=== PATIENT | female | born 1965 | race Caucasian/White ===

== ENCOUNTER → 2018-11-14 11:16 | Outpatient (CLI) | payer OTHER, SELFPAY ==
--- NOTE | 2018-11-14 | DI.MRI.S_ITS ---
PROCEDURE: MR KNEE LT WO CON INDICATIONS: LEFT KNEE PAIN TECHNIQUE: Noncontrast sagittal PD fast spin echo and T2 fast spin echo with fat saturation, sagittal 3-D FLASH with fat saturation; coronal T1 spin echo and PD fast spin echo with fat saturation, and axial PD fast spin echo with fat saturation through the knee. COMPARISON: None. FINDINGS: Image quality: Excellent. Menisci: The medial and lateral menisci demonstrate normal morphology and internal signal. The meniscal root ligaments appear intact. Cruciate ligaments: The anterior and posterior cruciate ligaments appear intact. Medial structures: The medial collateral ligament appears intact. Visualized portions of the pes anserinus tendons appear normal. No abnormal bursal fluid. Lateral structures: The lateral collateral ligament, long and short heads of the biceps femoris tendon appear intact. The there is partial thickness tearing of the lateral patellofemoral ligament at the patellar insertion site. The popliteus tendon appears normal. Iliotibial band appears normal. Anterior structures: The quadriceps and patellar tendons appear intact. Patellar alignment is normal. There is moderate T2 signal elevation involving the lateral patella and adjacent soft tissues at the patellofemoral ligament insertion site. No femoral trochlear dysplasia or ventral trochlear prominence. No edema in the infrapatellar fat pad. Moderate prepatellar subcutaneous edema. Bones and cartilage: No bone marrow contusions or fractures. There is mild tricompartmental periarticular osteophyte formation. Mild diffuse articular cartilage loss overlies the weightbearing aspects of the medial femoral condyle and medial tibial plateau. Articular cartilage fibrillation overlies the patellar apex, with a superimposed full-thickness articular cartilage fissure overlying the patellar apex inferiorly. Articular cartilage fibrillation overlies the lateral patellar facet. Multiple intraosseous ganglia within the medial and lateral patellar facets are present. Joint space: There is physiologic knee joint fluid. No Mayberry's cyst. Normal appearing synovial plicae are incidentally noted. IMPRESSION: 1. No evidence of internal derangement. 2. 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 3. Partial-thickness tearing of the lateral patellofemoral ligament at the patellar insertion site, with adjacent edema/inflammation. 4. Prepatellar bursitis. Dictated by: James Tomlinson M.D. on 11/14/2018 at 13:51 Approved by: James Tomlinson M.D. on 11/14/2018 at 13:56
== END ==
PROVIDERS: PCP Family Medicine Geriatric Medicine; Visit Provider Orthopaedic Surgery
DX: M25.562 Pain in left knee (principal); M17.12 Unilateral primary osteoarthritis, left knee; S76.112A Strain of left quadriceps muscle, fascia and tendon, initial encounter; M70.42 Prepatellar bursitis, left knee
CPT/HCPCS: 73721

== ENCOUNTER 2021-09-18 05:52 | Day surgery (SDC) | payer OTHER, SELFPAY ==
[2021-09-14 12:50] VITALS: BMI 48.0
--- NOTE | 2021-09-18 | PATH_ITS ---
[facility] Accession Number: [id number] . 01 Material submitted: . PART A: lymph node - LEFT GROIN LYMPH NODE FORMALIN PART B: lymph node - LEFT GROIN LYMPH NODE-B FIX . 01 Clinical history: . LYMPHADENOPATHY . 01 Diagnosis: A, B: Left Groin Lymph Node, Excision: Benign, reactive lymph node; see microscopic description. Negative for hematolymphoid malignancy. Negative for granulomatous inflammation. Negative for carcinoma. MRV 09/21/2021 1509 Local . 01 Electronically signed: . Anthony Boyce MD, Pathologist NPI- [id number] . 01 Gross description: . A. Received in formalin and labeled with left groin lymph node is one piece of dudley soft tissue measuring 1.3 x 1.0 x 0.6 cm. The tissue is inked, serially sectioned into four slices, and entirely submitted in cassette A1. B. Received in B-Fix specimen transport container is one piece of dudley soft tissue measuring 0.5 x 0.5 x 0.3 cm. The tissue is inked, trisected and entirely submitted in cassette B1. (BJ:[id number]) /MRV 09/19/2021 1023 Local . 01 Microscopic: . A, B: Microscopic examination of the left groin lymph node reveals normal romie architecture with open sinuses and reactive follicles. There is no morphologic evidence for metastatic carcinoma. There is no evidence for granulomatous inflammation. . A panel of immunostains is performed to evaluate for hematolymphoid malignancies, with the following results: . CD3: T lymphocytes positive. CD5: T lymphocytes positive (negative for aberrant coexpression on the B lymphocytes). CD20: B lymphocytes positive. CD10 and BCL6: Follicles positive. CD21: Follicular dendritic cells positive. BCL2: T lymphocytes positive (negative on the germinal centers of the reactive follicles and negative for aberrant coexpression on the B lymphocytes). Cyclin D1: Negative for aberrant coexpression on the B lymphocytes. Proliferation marker Ki-67: Low, limited within the reactive germinal centers. [place] light chain immunostain: Subset of plasma cells positive/no restriction. Lambda light chain immunostain: Subset of plasma cells positive/no restriction. . Based on the above immunohistochemistry and morphology, this is a benign lymph node with normal architecture and normal B and T cell distribution. . There is no evidence of malignancy. . If there are radiologically suspicious lymph nodes, additional sampling may also be considered for histologic examination if clinically indicated. . Concurrent flow cytometry did not reveal atypical B cell, NK cell, or T cell populations (see complete flow cytometry report [id number] for details). . As part of ongoing quality control technician, Dr. Torrie Carrillo, hematopathologist, has reviewed the case and agrees with the interpretation. . * This test was developed and its performance characteristics determined by [facility]. It has not been cleared or approved by the U.S. Food and Drug Administration. The FDA has determined that such clearance or approval is not necessary. This test is used for clinical purposes. It should not be regarded as investigational or for research. . 01 Pathologist provided ICD-10: R59.1 . 01 CPT . 415142, 922464, E02002, S54466 Performed at: 01 [facility] [address] [place] [address], [place], [place] [id number] MD Gregory Rajput MD Phone: [phone]
[2021-09-18 06:59] LABS: COVID19 -Nasal RAPID Negative (Negative)
[2021-09-18 07:14] VITALS: BP 159/77; PULSE 61; RESP 16; TEMP 36.4; O2SAT 98; BMI 48.0
[2021-09-18] MEDS: LACTATED RINGERS 1,000 ML 42 ML IV (07:31)
--- NOTE | 2021-09-18 07:36 | PM.PREOP ---
Pre-operative Note Interval Note History & Physical reviewed/Exam performed by Physician: Yes Changes to H&P: No
[2021-09-18 07:43] VITALS: BMI 48.0
[2021-09-18] MEDS: CEFAZOLIN 1 GM VIAL 3 GM IV (07:55)
--- NOTE | 2021-09-18 08:06 | SUR.OPER ---
Supine on padded OR bed, head on pillow, arms secured on padded arm boards at <90 degrees abduction, legs uncrossed, safety belt at thigh, tape over blanket over lower legs. Gel pad under bilateral heels.
[2021-09-18] MEDS: BUPIVACAINE 0.25% (PF) VIAL 30 ML INJ (08:11)
[2021-09-18 08:38] VITALS: BP 112/63; PULSE 70; RESP 14; TEMP 36.1; O2SAT 95
[2021-09-18 08:43] VITALS: BP 118/72; PULSE 66; RESP 12; O2SAT 95
[2021-09-18 08:48] VITALS: BP 126/73; PULSE 66; RESP 12; O2SAT 94
[2021-09-18] MEDS: fentaNYL 100 MCG/2 ML INJ IV (08:48)
[2021-09-18 08:54] VITALS: BP 131/104; PULSE 62; RESP 15; TEMP 36.1; O2SAT 94
[2021-09-18 09:23] VITALS: BP 125/67; PULSE 64; RESP 12; TEMP 36.1; O2SAT 95
--- NOTE | 2021-09-22 07:08 | PM.OP.1 ---
Operative Date/Time/Diagnoses Date of procedure: 09/18/21 Time of procedure: 07:08 Pre-op diagnosis: lymphadenopathy Post-op diagnosis: same Procedure & Clinicians Procedure: excisional biopsy left groin lymph node Same procedure as scheduled: Yes Indications: lymphadenopathy of unexplained etiology Surgeon: Robert Hodge Click Yes if Unassisted: Yes Anesthesia Type: General Operative Notes Findings: mild left groin adenopathy. Specimen(s): other (left groin lymph node) Estimated Blood Loss (mL): 20 Procedure in detail: patient was brought to the operating room placed supine on the table. Anesthesia was induced she was intubated with an LMA. She received antibiotics pre skin incision. Prepped and draped sterile fashion. Time-out performed. Incision over the left groin at the point of maximal lymphadenopathy was made. Subcutaneous tissues were divided. A superficial inguinal lymph node was encountered. Lymph node was dissected out circumferentially. Lymph node was ligated at its base with silk suture and then sharply excised. Specimen was passed off the field. The wound was checked for hemostasis and then closed in layers. Skin was closed with Monocryl followed by Dermabond application of Steri-Strips. Extubated transferred to recovery room stable condition Complications: none Post-operative Condition: stable Disposition: same day surgery
== END 2021-09-18 09:24 | disposition home or self-care (01) ==
PROVIDERS: PCP Physician Assistant Medical; Referring Provider Surgery; Visit Provider Surgery
PROC: (CPT 38531; principal; 2021-09-18 07:45)
DX: R59.0 Localized enlarged lymph nodes (principal); Z20.822 Contact with and (suspected) exposure to COVID-19; I10 Essential (primary) hypertension; E66.01 Morbid (severe) obesity due to excess calories; G47.33 Obstructive sleep apnea (adult) (pediatric); Z68.42 Body mass index [BMI] 45.0-49.9, adult
CPT/HCPCS: 38531; 87635; J0690; J3010

== ENCOUNTER → 2023-01-04 10:31 | Outpatient (CLI) | payer OTHER, SELFPAY ==
--- NOTE | 2023-01-04 | DI.MRI.S_ITS ---
PROCEDURE: MR LUMBAR SPINE WO CON INDICATIONS: Strain of muscle, fascia and tendon of lower back, subsequen TECHNIQUE: Noncontrast sagittal T1 spin echo and T2 fast echo, sagittal STIR, and T2 fast spin echo through the lumbar spine. In cases with scoliosis, additional coronal T2 fast spin echo may be performed. COMPARISON: None. FINDINGS: Image quality: Excellent. Alignment and Curvature: There is normal bony alignment. Bone Marrow: Marrow is of normal overall signal. No acute vertebral body compression fractures. Spinal Cord: Conus medullaris terminates at the L1 level. Visualized cord demonstrates normal signal and size. Paraspinous Soft Tissues: No paravertebral masses. Paraspinal muscles demonstrate fatty atrophy. T12-L1: No significant disc bulge. The foramina and central canal are patent. L1-L2: No significant disc bulge. The foramina and central canal are patent. L2-L3: Disc space narrowing with desiccation and diffuse bulge of the disc. There is mild bilateral foraminal stenosis. L3-L4: Disc space narrowing with desiccation and diffuse bulge of the disc. Facet hypertrophy bilaterally. Mild bilateral foraminal stenosis and moderate central canal stenosis. L4-L5: Diffuse disc bulge and facet hypertrophy. No significant foraminal stenosis. Disc bulge and ligamentum flavum hypertrophy cause mild central canal stenosis. L5-S1: Diffuse disc bulge with a central annular tear. Left foraminal protrusion. Mild right and moderate left foraminal stenosis. The central canal is patent. IMPRESSION: 1. Multilevel lumbar spondylosis causing foraminal and central canal stenosis as detailed above. 2. No acute abnormality. 3. The visualized cord has a normal signal and appearance. Dictated by: Jean Paul Vasquez M.D. on 01/04/2023 at 11:01 Approved by: Jean Paul Vasquez M.D. on 01/04/2023 at 11:05
== END ==
PROVIDERS: PCP Physician Assistant Medical; Referring Provider Physical Medicine & Rehabilitation Pain Medicine; Visit Provider Physical Medicine & Rehabilitation Pain Medicine
DX: M47.816 Spondylosis without myelopathy or radiculopathy, lumbar region (principal); M48.061 Spinal stenosis, lumbar region without neurogenic claudication; S39.012D Strain of muscle, fascia and tendon of lower back, subsequent encounter
CPT/HCPCS: 72148

== ENCOUNTER 2024-01-28 17:49 | Emergency (ER) | payer OTHER, SELFPAY ==
[2024-01-28 17:59] VITALS: BP 177/86; PULSE 57; RESP 16; TEMP 36.1; O2SAT 98; BMI 48.0
--- NOTE | 2024-01-28 18:03 | DI.CT.S_ITS ---
PROCEDURE: CT ABDOMEN PELVIS W CON INDICATIONS: LLQ pain TECHNIQUE: After the administration of intravenous contrast, axial sections acquired from the lung bases to the pubic symphysis. Coronal and sagittal reformats were performed. For radiation dose reduction, the following was used: automated exposure control, adjustment of mA and/or kV according to patient size. COMPARISON: Outside Facility, , CT ABDOMEN/PELVIS WITH CONTRAST, 08/22/2021, 13:36. [facility], CT, ABDOMEN/PELVIS WITH CONTRAST, 07/29/2009, 8:02. FINDINGS: Image quality: Diagnostic. Lower Chest: No significant findings. ABDOMEN: Liver: Hepatomegaly and moderate hepatic steatosis. No focal liver mass. Gallbladder: Mildly distended but without CT evidence of wall thickening or calcified stone. Biliary ducts: No biliary dilation. Pancreas: Normal. Spleen: Size is within normal limits. Adrenal Glands: No adrenal nodules. Kidneys and Ureters: Symmetric enhancement. Nonobstructing punctate left intrarenal calculi. No hydronephrosis or hydroureter. Stomach and Bowel: Mild inflammation around the proximal sigmoid colon at the left lower quadrant contacting the overlying peritoneal surface. Mild fat stranding. No extraluminal gas or associated free fluid. A colonic diverticula is not identified in this location and there is mild short segment circumferential colon wall thickening. The appendix is surgically absent. Stomach and small bowel loops are normal. Peritoneum: No abnormal intraperitoneal fluid. No free air. Ventral Wall: No significant ventral hernia. Abdominal Nodes: There are borderline prominent retroperitoneal lymph nodes, particularly at the iliac bifurcation there is a node with a 1.2 cm short axis diameter, though present on a remote prior study. Borderline lymph nodes are present to the level of the renal vein. No mesenteric masses. Vessels: Aorta and inferior vena cava are normal in size. PELVIS: Pelvic Organs: Supracervical hysterectomy. Right ovary was not seen. Left residual ovarian tissue is likely normal. Bladder: No bladder wall thickening, accounting for underdistention. Pelvic Nodes: There is bulky bilateral pelvic sidewall and external iliac chain adenopathy, with one of the larger left iliac chain nodes measuring 2.3 cm short axis. Mildly prominent right inguinal adenopathy. Miscellaneous: No inguinal hernias are seen. Bones: No aggressive osseous abnormality. Degenerative disc and endplate changes in the mid lumbar spine. IMPRESSION: Mild focal colonic and pericolonic inflammation in the left lower quadrant involving the proximal sigmoid colon. No diverticula is seen in this may be a focal colitis, either inflammatory or infectious. Differential diagnosis includes epiploic appendagitis. There are chronically enlarged retroperitoneal and particularly pelvic lymph nodes, present since 08/22/21. Correlate with any history of lymphoproliferative disease. Dictated by: Monisha Lopez M.D. on 01/28/2024 at 18:53 Approved by: Monisha Lopez M.D. on 01/28/2024 at 19:19
--- NOTE | 2024-01-28 19:32 | ED_ITS ---
HPI - Abdominal Pain General Chief Complaint: Abdominal Pain Stated Complaint: CT Time Seen by Provider: 01/28/24 18:03 Source: patient Mode of arrival: Ambulatory History of Present Illness HPI narrative: Patient is a 59-year-old female history of hypertension, chronic back pain hyperlipidemia surgical history appendectomy, hysterectomy previous history of right-sided diverticulitis presents today with left lower quadrant pain that sta rted early this morning. She initially was seen around 1 of the [place] she had blood work done there was concern for diverticulitis fortunately the CT scanner was down and she was sent here for rule out diverticulitis with a CT. She was given a dose of Dilaudid fluids and Unasyn. She continues to be in quite a bit of pain. No nausea or vomiting no chest pain or shortness of breath. She overall currently appears very uncomfortable. Blood work and workup at previous facility has been reviewed electrolytes within normal limits no TREVOR liver enzymes mildly elevated ALT 93 AST 43 bilirubin is 0.5 having right upper quadrant pain I suspect maybe due to body habitus WBC is 10.2 with a lactate of 1.0. She had an x-ray which did not show any free air Related Data Home Medications Medication Instructions Recorded Confirmed atenolol 25 mg tablet 25 mg PO DAILY 07/12/21 09/18/21 cyclobenzaprine 10 mg tablet 10 mg PO BEDTIME 07/12/21 09/18/21 epinephrine 0.3 mg/0.3 mL 0.3 mg IM ONCE 07/12/21 09/14/21 injection, auto-injector (EpiPen) gabapentin 300 mg capsule 300 mg PO DAILY 07/12/21 09/18/21 hydrocodone 5 mg-acetaminophen 325 1 tab PO Q6H PRN Pain 07/12/21 09/18/21 mg tablet ketoconazole 2 % topical cream 1 applic topical DAILY 07/12/21 09/14/21 loratadine 10 mg tablet (Claritin) 10 mg PO DAILY 07/12/21 09/18/21 multivitamin 1 tab PO DAILY 07/12/21 09/18/21 omega-3 fatty acids 1,000 mg 1,000 mg PO DAILY 07/12/21 09/18/21 capsule (Fish Oil Concentrate) omeprazole 20 mg capsule,delayed 20 mg PO DAILY 07/12/21 09/18/21 release simvastatin 10 mg tablet 10 mg PO DAILY 07/12/21 09/18/21 verapamil 180 mg tablet,extended 180 mg PO DAILY 07/12/21 09/18/21 release Previous Rx's Medication Instructions Recorded acetaminophen 325 mg capsule 650 mg (2 x 325 mg) PO QID PRN 09/18/21 (Tylenol) pain #60 caps ibuprofen 200 mg tablet 400 mg (2 x 200 mg) PO Q6H #60 tabs 09/18/21 oxycodone 5 mg tablet See Rx Instructions .Route 09/18/21 .COMPLEX PRN pain #10 tabs ciprofloxacin HCl 500 mg tablet 500 mg PO BID #14 tabs 01/28/24 (Cipro) hydrocodone 5 mg-acetaminophen 325 1 tab PO Q6H PRN pain #10 tabs 01/28/24 mg tablet metronidazole 500 mg tablet 500 mg PO Q8H 7 days #21 tabs 01/28/24 Allergies Allergy/AdvReac Type Severity Reaction Status Date / Time hydrochlorothiazide Allergy Severe MY THROAT Verified 01/28/24 17:59 WAS CLOSING UP lisinopril Allergy Severe MY THROAT Verified 01/28/24 17:59 WAS CLOSING UP Patient History Medical History (Updated 01/28/24 @ 19:50 by Ava Oscar DO) HLD (hyperlipidemia) Arthritis Back pain Surgical History H/O: hysterectomy Hx of appendectomy History of tonsillectomy Family History Father Hypertension Hyperlipidemia COPD (chronic obstructive pulmonary disease) Social History marital status: unmarried,single household members: other lives independently: Yes pets and animals: Yes Smoking Status: Former smoker alcohol intake: current Smoking Status: Former smoker Substance Use Type: does not use Exam Initial Vital Signs Initial Vital Signs: Vital Signs Temperature 97 F L 01/28/24 17:59 Pulse Rate 57 L 01/28/24 17:59 Respiratory Rate 16 01/28/24 17:59 Blood Pressure 177/86 H 01/28/24 17:59 Pulse Oximetry 98 01/28/24 17:59 Oxygen Delivery Method Room Air 01/28/24 17:59 GENERAL: Alert 59-year-old female BMI 48 overall appears very uncomfortable holding left lower quadrant HEENT: Head atraumatic,EOMI, pupils reactive, face symmetric, moist mucous membranes CARDIOVASCULAR: Regular rate and rhythm without murmurs, rubs or gallops. RESPIRATORY: Breath sounds equal bilaterally, no wheezes rales or rhonchi. ABDOMEN: Soft, tender left lower quadrant no guarding no rebound EXTREMITIES: Normal range of motion, no clubbing or edema. Neurovascularly intact NEUROLOGICAL: Alert and oriented x4.Normal gait and speech. SKIN: Warm, dry, no laceration, no petechiae, no rashes or lesions. Course Orders Ordered: Discontinued Medications Hydrocodone Bitart/Acetaminophen (Hydrocodone/Acet 5/325 Prepack) 1 bottle MISC DIRECTED ONE Stop: 01/28/24 19:46 Last Admin: 01/28/24 20:18 Dose: Not Given Documented By: SALO Hydromorphone HCl (Hydromorphone 1 Mg Inj) 1 mg IV NOW ONE Stop: 01/28/24 19:39 Last Admin: 01/28/24 20:17 Dose: 1 mg Documented By: SALO Ketorolac Tromethamine (Ketorolac 30 Mg/Ml Vial) 15 mg IV NOW ONE Stop: 01/28/24 19:39 Last Admin: 01/28/24 20:16 Dose: 15 mg Documented By: SALO Vital Signs Vital signs: Vital Signs - 8 hr 01/28/24 19:58 01/28/24 19:59 01/28/24 19:59 Temperature Pulse Rate 58 L 57 L Respiratory Rate Blood Pressure 166/78 H Pulse Oximetry 97 97 Oxygen Delivery Method 01/28/24 20:19 Temperature 97.7 F Pulse Rate 59 L Respiratory Rate 18 Blood Pressure 166/78 H Pulse Oximetry 97 Oxygen Delivery Method Room Air MDM - Abdominal Pain Imaging Data CT scan - abdomen/pelvis: Radiologist's Impression: PROCEDURE: CT ABDOMEN PELVIS W CON INDICATIONS: LLQ pain TECHNIQUE: After the administration of intravenous contrast, axial sections acquired from the lung bases to the pubic symphysis. Coronal and sagittal reformats were performed. For radiation dose reduction, the following was used: automated exposure control, adjustment of mA and/or kV according to patient size. COMPARISON: Outside Facility, , CT ABDOMEN/PELVIS WITH CONTRAST, 08/22/2021, 13:36. [facility], CT, ABDOMEN/PELVIS WITH CONTRAST, 07/29/2009, 8:02. FINDINGS: Image quality: Diagnostic. Lower Chest: No significant findings. ABDOMEN: Liver: Hepatomegaly and moderate hepatic steatosis. No focal liver mass. Gallbladder: Mildly distended but without CT evidence of wall thickening or calcified stone. Biliary ducts: No biliary dilation. Pancreas: Normal. Spleen: Size is within normal limits. Adrenal Glands: No adrenal nodules. Kidneys and Ureters: Symmetric enhancement. Nonobstructing punctate left intrarenal calculi. No hydronephrosis or hydroureter. Stomach and Bowel: Mild inflammation around the proximal sigmoid colon at the left lower quadrant contacting the overlying peritoneal surface. Mild fat stranding. No extraluminal gas or associated free fluid. A colonic diverticula is not identified in this location and there is mild short segment circumferential colon wall thickening. The appendix is surgically absent. Stomach and small bowel loops are normal. Peritoneum: No abnormal intraperitoneal fluid. No free air. Ventral Wall: No significant ventral hernia. Abdominal Nodes: There are borderline prominent retroperitoneal lymph nodes, particularly at the iliac bifurcation there is a node with a 1.2 cm short axis diameter, though present on a remote prior study. Borderline lymph nodes are present to the level of the renal vein. No mesenteric masses. Vessels: Aorta and inferior vena cava are normal in size. PELVIS: Pelvic Organs: Supracervical hysterectomy. Right ovary was not seen. Left residual ovarian tissue is likely normal. Bladder: No bladder wall thickening, accounting for underdistention. Pelvic Nodes: There is bulky bilateral pelvic sidewall and external iliac chain adenopathy, with one of the larger left iliac chain nodes measuring 2.3 cm short axis. Mildly prominent right inguinal adenopathy. Miscellaneous: No inguinal hernias are seen. Bones: No aggressive osseous abnormality. Degenerative disc and endplate changes in the mid lumbar spine. IMPRESSION: Mild focal colonic and pericolonic inflammation in the left lower quadrant involving the proximal sigmoid colon. No diverticula is seen in this may be a focal colitis, either inflammatory or infectious. Differential diagnosis includes epiploic appendagitis. There are chronically enlarged retroperitoneal and particularly pelvic lymph nodes, present since 08/22/21. Correlate with any history of lymphoproliferative disease. Dictated by: Monisha Lopez M.D. on 01/28/2024 at 18:53 MDM Narrative Medical decision making narrative: 59-year-old female who presents today with lower quadrant pain that started less than 24 hours ago. She is quite tender on exam. Blood work has been reviewed at prior facility. CT done here does show colitis in left lower quadrant no obvious diverticulitis, but no evidence of perforation Patient is in quite a bit of pain. I do think reasonable to put on antibiotics and pain control. Patient reports that she is chronically on [place] she was she recently got it filled she does not need anymore pain medications home. But Dilaudid does her here in the ED. I have also given her Toradol. She was also helps. Discharge Plan Departure Patient Disposition: Home Clinical Impression: Colitis Instructions: DI for Colitis Activity Restrictions/Additional Instructions: *You have been diagnosed with colitis *What to do: At this time you do not have diverticulitis but you do have infla mmatory change in your colon. We will start you on some antibiotics and pain medication. Recommend brat diet or low-fiber diet while this heals. He is here to stay hydrated. *Continue to take medications as directed Cipro 500 mg twice a day x7 days Flagyl 500 mg x 7 days Ibuprofen 600 mg every 6 hours if needed for [id number] pain *Follow up with your primary care provider in 2-3 days or call [phone] *Return to ER if you should have increasing pain body pain nausea vomiting or any new, worsening or concerning symptoms Prescriptions: New hydrocodone-acetaminophen 5-325 mg tablet 1 tab PO Q6H PRN (Reason: pain) Qty: 10 0RF metronidazole 500 mg tablet 500 mg PO Q8H 7 Days Qty: 21 0RF ciprofloxacin HCl [Cipro] 500 mg tablet 500 mg PO BID Qty: 14 0RF No Action loratadine [Claritin] 10 mg tablet 10 mg PO DAILY multivitamin Tablet 1 tab PO DAILY omega-3 fatty acids [Fish Oil Concentrate] 1,000 mg capsule 1,000 mg PO DAILY epinephrine [EpiPen] 0.3 mg/0.3 mL auto-injector 0.3 mg IM ONCE Rx Instructions: as a single dose gabapentin 300 mg capsule 300 mg PO DAILY Patient Comments: Take 1 tablet qam and 2 tablets qpm ketoconazole 2 % cream 1 applic topical DAILY verapamil 180 mg tablet extended release 180 mg PO DAILY Rx Instructions: Take 2 tablets daily atenolol 25 mg tablet 25 mg PO DAILY cyclobenzaprine 10 mg tablet 10 mg PO BEDTIME Patient Comments: take 1 tablet every 8 hrs as needed for muscle spasm simvastatin 10 mg tablet 10 mg PO DAILY omeprazole 20 mg capsule,delayed release(DR/EC) 20 mg PO DAILY hydrocodone-acetaminophen 5-325 mg tablet 1 tab PO Q6H PRN (Reason: Pain) ibuprofen 200 mg tablet 400 mg PO Q6H Qty: 60 0RF oxycodone 5 mg tablet See Rx Instructions .ROUTE .COMPLEX PRN (Reason: pain) Qty: 10 0RF Rx Instructions: 1-2 tabs every 6 hrs as needed for pain acetaminophen [Tylenol] 325 mg capsule 650 mg PO QID PRN (Reason: pain) Qty: 60 0RF Referrals: Tatiana Madrid PA-C [Primary Care Provider] - Stand Alone Forms: Patient Portal/API
[2024-01-28 19:58] VITALS: PULSE 58; O2SAT 97
[2024-01-28 19:59] VITALS: BP 166/78; PULSE 57; O2SAT 97
[2024-01-28] MEDS: KETOROLAC 30 MG/ML VIAL 15 MG IV (20:16)
[2024-01-28] MEDS: HYDROMORPHONE 1 MG INJ IV (20:17)
[2024-01-28 20:19] VITALS: BP 166/78; PULSE 59; RESP 18; TEMP 36.5; O2SAT 97
== END 2024-01-28 20:21 | disposition home or self-care (01) ==
PROVIDERS: Emergency Provider Emergency Medicine; PCP Physician Assistant Medical
DX: K52.9 Noninfective gastroenteritis and colitis, unspecified (principal)
CPT/HCPCS: 74177; 96374; 96375; 99284; J1170; J1885; Q9967